=== PATIENT | female | born 1990 | race Two or more races ===

== ENCOUNTER 2024-11-09 16:51 | Emergency (ER) | payer MEDICAID ==
[~2024-11-09] VITALS: Ht 154.9 cm; Wt 83.6 kg
[2024-11-09 17:00] VITALS: BP 137/84; PULSE 87; RESP 13; TEMP 98.8; O2SAT 100
[2024-11-09] MEDS ORDERED: ACETAMINOPHEN 325 MG TAB PO ONE (17:45)
--- NOTE | 2024-11-09 17:49 | ED.PDOC ---
GI ASSESSMENT HPI Comments 34 y/o F, presents to the ED for CC of abdominal pain. Patient states, that she has been experiencing RLQ abdominal pain x hours. Patient endorses, that she is currently 7 weeks . Patient complains of current 8/10 pain. Patient denies hematuria, vaginal bleeding, fever, back pain, or dysuria. No others symptoms or modifying factors at this time. Chief Complaint: Abdominal Pain Time Seen by MD: 17:40 Reviewed Notes: Nurses Notes, Medications, Allergies Allergies: Coded Allergies: NO KNOWN ALLERGIES (Unverified , 11/09/24) Home Meds Active Scripts Nitrofurantoin Monohydrate Mac (Macrobid) 100 Mg Cap, 100 MG PO BID for 5 Days, #10 CAP Prov:SELMA RAPP MD 11/09/24 Information Source: Patient Mode of Arrival: EMS Timing: Hours Duration: Since onset Prehospital treatment: None Quality: None Vomitus: None Stool: Normal Severity: Moderate Recent: None Recent Hx of: None Pain Location: RLQ Modifying Factors: Nothing Associated sign and symptoms: None Past Medical History PAST MEDICAL HISTORY: Denies Surgical History: Denies all surgeries 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 Family History Family History: Unknown Social History Smoker: Non-Smoker Alcohol: Denies ETOH Use Drugs: Denies Drug Use Lives In: Home Constitutional: denies: chills, diaphoresis, fatigue, fever, malaise, sweats, weakness, others EENTM: denies: blurred vision, double vision, ear bleeding, ear discharge, ear drainage, ear pain, ear ringing, eye pain, eye redness, hearing loss, mouth pain, mouth swelling, nasal discharge, nose bleeding, nose congestion, nose pain, photophobia, tearing, throat pain, throat swelling, voice changes, others Respiratory: denies: cough, hemoptysis, orthopnea, SOB at rest, shortness of breath, SOB with excertion, stridor, wheezing, others Cardiovascular: denies: chest pain, dizzy spells, diaphoresis, Dyspnea on exertion, edema, irregular heart beat, left arm pain, lightheadedness, palpitations, PND, syncope, others Gastrointestinal: reports: abdominal pain; denies: abdomen distended, blood streaked bowels, constipated, diarrhea, dysphagia, difficulty swallowing, hematemesis, melena, nausea, poor appetite, poor fluid intake, rectal bleeding, rectal pain, vomiting, others Genitourinary: denies: abnormal vagina bleeding, burning, dyspareunia, dysuria, flank pain, frequency, hematuria, incontinence, pain, , vagina discharge, urgency, others Neurological: denies: dizziness, fainting, headache, left sided numbness, left sided weakness, numbness, paresthesia, pre-existing deficit, right sided numbness, right sided weakness, seizure, speech problems, tingling, tremors, weakness, others Musculoskeletal: denies: back pain, gout, joint pain, joint swelling, muscle pain, muscle stiffness, neck pain, others Integumetry: denies: bruises, change in color, change in hair/nails, dryness, laceration, lesions, lumps, rash, wounds, others Allergic/Immunocompromised: denies: Difficulty Healing, Frequent Infections, Hives, Itching, others Hematologic/Lymphatic: denies: anemia, blood clots, easy bleeding, easy bruising, swollen glands, others Endocrine: denies: excessive hunger, excessive sweating, excessive thirst, excessive urination, flushing, intolerance to cold, intolerance to heat, unexplained weight gain, unexplained weight loss, others Psychiatric: denies: anxiety, bipolar disorder, depression, hopeless, panic disorder, schizophrenia, sleepless, suicidal, others All Other Systems: Reviewed and Negative Physical Exam General Appearance: No Apparent Distress, Obese HEENT: Normal ENT Inspection, Pharynx Normal, TMs Normal Neck: Full Range of Motion, Non-Tender, Normal, Normal Inspection Respiratory: Chest Non-Tender, Lungs Clear, No Accessory Muscle Use, No Respiratory Distress, Normal Breath Sounds Cardiovascular: No Edema, No JVD, No Murmur, No Gallop, Normal Peripheral Pulses, Regular Rate/Rhythm Breast Exam: Deferred Gastrointestinal: No Organomegaly, Non Tender, No Pulsatile Mass, Normal Bowel Sounds, Soft Genitalia: Deferred Pelvic: Deferred Rectal: Deferred Extremities: No calf tenderness, Normal capillary refill, Normal inspection, Normal range of motion, Non-tender, No pedal edema Musculoskeletal : Apperance: Normal Neurologic: Alert, 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 Was a procedure done?: No GI differential Dx Differential Diagnosis: Gastritis/PUD, Gastroenteritis, Electrolyte Imbalance, Food Poisoning, , Bacterial, Viral X-Ray, Labs, Meds, VS Vital Signs Date Time Temp Pulse Resp B/P (MAP) Pulse Ox O2 Delivery O2 Flow Rate FiO2 11/09/24 17:00 98.8 87 13 137/84 (101) 100 98.8 Lab Test 11/09/24 19:56 11/09/24 18:17 Range/Units Urine Color Light-yellow Yellow Urine Clarity Clear Clear Urine pH 6.0 5.0-9.0 Urine Specific [place] 1.013 1.001-1.035 Urine Protein Negative Negative Urine Ketones Trace Negative Urine Blood Negative Negative /uL Urine Nitrite Negative Negative Urine Bilirubin Negative Negative Urine Urobilinogen Normal Negative mg/dL Urine Leukocyte Esterase 1+ Negative /uL Urine RBC 3 0 - 4 /hpf Urine Microscopic WBC 7 H 0-5 /HPF Urine Squamous Epithelial Cells Few <5 /hpf Urine Amorphous Crystals Few None Seen /hpf Urine Bacteria Few H None Seen /hpf Urine Glucose Normal Normal mg/dL Beta HCG, Quantitative 288011.0 H 1.5-4.2 mIU/mL Pelvic ultrasound shows:Impression: Single live intrauterine with heart rate of 162 bpm. Estimated gestational age 8 weeks/ 2 days with estimated date of confinement 06/19/2025. The quantitative hCG is 650287 The urine test shows: UTI The patient was being discharged on Macrobid The patient will follow up with the primary care doctor The patient will return to the emergency department's condition worsens. Images Reviewed?: Images reviewed and evaluated by me Time of 1ST Reevaluation: 18:20 Reevaluation 1ST: Unchanged Time of 2ND Reevaluation: 20:36 Reevaluation 2ND: Improved Patient Education/Counseling: Diagnosis, Treatment, Prognosis, Need For Follow Up Family Education/Counseling: No Family Present Departure 1 Departure Time of Disposition: 20:35 Impression: Primary Impression: UTI in Qualified Codes: O23.40 - Unspecified infection of urinary tract in , unspecified trimester Disposition: 01 HOME / SELF CARE / HOMELESS Condition: Fair e-Prescriptions Nitrofurantoin Monohydrate Mac (Macrobid) 100 Mg Cap 100 MG PO BID for 5 Days, #10 CAP Prov: SELMA RAPP MD 11/09/24 Discharged With: Self Critical Care Note Critical Care Time?: No Stability Stability form required: No Heart Score Heart Score: Heart Score Response (Comments) Value History N/A 0 EKG N/A 0 Age N/A 0 Risk Factors N/A 0 Troponin N/A 0 Total 0 I personally scribed for SELMA RAPP MD ([email or web address]) on 11/09/24 at 17:48. Elect ronically submitted by Stefanie Ibarra ([email or web address]). SELMA RAPP MD Nov 09, 2024 17:48
--- NOTE | 2024-11-09 19:50 | DVH ---
Procedure: US OB ULTRASOUND COMP LESS 14WKS Study Date and Requested Time: 11/09/2024 07:16 PM Study Description: US OB ULTRASOUND COMP LESS 14WKS History: pain Comparison: None Technique: Multiple high resolution andrea-scale images obtained of the uterus, fetus, and other gestat ional components with M-mode scanning for evaluation of heart rate. Findings: Single live intrauterine with gestational sac, yolk sac, and fetus visualized. heart rate of 162 bpm. Estimated gestational age 8 weeks/ 2 days based on mean gestational sac diameter of 3.4 cm and crown-rump length of 1.59 cm. Uterus measures 12 x 6.5 x 5.3 cm in size. Cervical os appears closed. Right ovary measures 4.7 x 2.8 x 2.3 cm. Left ovary measures 2.7 x 2.1 x 1.6 cm. Normal ovarian color Doppler flow bilaterally. No evidence of cystic or solid ovarian lesions. No evidence of free fluid in the cul-de-sac. Impression: Single live intrauterine with heart rate of 162 bpm. Estimated gestational age 8 week s/ 2 days with estimated date of confinement 06/19/2025.
[2024-11-09 20:21] LABS: Urine Amorphous Crystal FEW /hpf (None Seen); Urine Bacteria FEW /hpf (None Seen); Urine Blood Negative /uL (Negative); Urine Clarity Clear (Clear); Urine Color Light-Yellow (Yellow); Urine Protein, UAD Negative (Negative); Urine Specific Gravity 1.013 (1.001-1.035); Urine Squamous Epithelial Cell FEW /hpf (<5); Urine Urobilinogen Normal (Negative); Urine WBC 7 /HPF (0-5)
[2024-11-09] MEDS ORDERED: NITR-87 PO (20:37)
== END 2024-11-09 23:50 | disposition home or self-care (01) ==
LOC: ER 16:51
DX: O23.41 Unspecified infection of urinary tract in pregnancy, first trimester (principal); O00.90 Unspecified ectopic pregnancy without intrauterine pregnancy; N39.0 Urinary tract infection, site not specified; Z3A.08 8 weeks gestation of pregnancy
CPT/HCPCS: 36415; 76801; 81001; 84702

== ENCOUNTER 2025-02-06 23:31 | Emergency (ER) | payer MEDICAID ==
[~2025-02-06] VITALS: Ht 154.9 cm; Wt 81.9 kg
[~2025-02-06 23:31] MED LIST: NITR-87 PO
--- NOTE | 2025-02-07 00:42 | ED.PDOC ---
History of Present Illness HPI Comments 34 y/o F presents for c/o abnormal vaginal bleeding. Patient endorses on being 20x weeks , currently. She states on noticing blood when wiping, last night. Blood is described as light pink in appearance. Patient admits to being stressed, lately, but last ultrasound showing advancing without complications 2x weeks ago. No nausea, vomiting, urinary symptoms, fever, chills, abdominal pain, or further associated symptoms reported. 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 Family History Family History: Unknown Social History Smoker: Non-Smoker Alcohol: Denies ETOH Use Drugs: Denies Drug Use Lives In: Home All Other Systems: Reviewed and Negative (see HPI) Physical Exam General Appearance: No Apparent Distress, Normal HEENT: Normal ENT Inspection, Pharynx Normal, TMs Normal Neck: Full Range of Motion, Non-Tender, Normal, Normal Inspection Respiratory: Chest Non-Tender, Lungs Clear, No Accessory Muscle Use, No Respiratory Distress, Normal Breath Sounds Cardiovascular: No Edema, No JVD, No Murmur, No Gallop, Normal Peripheral Pulses, Regular Rate/Rhythm Breast Exam: Deferred Gastrointestinal: No Organomegaly, Non Tender, No Pulsatile Mass, Normal Bowel Sounds, Soft, Other (uterus just below the umbilical area) Genitalia: Deferred Pelvic: Deferred Rectal: Deferred Extremities: No calf tenderness, Normal capillary refill, Normal inspection, Normal range of motion, Non-tender, No pedal edema Musculoskeletal : Apperance: Normal Neurologic: Alert, 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 Was a procedure done?: No Differential Dx Considerations may include: at-risk , threatened , vaginitis, cystitis, menorrhea, among others X-Ray, Labs, Meds, VS Vital Signs Date Time Temp Pulse Resp B/P (MAP) Pulse Ox O2 Delivery O2 Flow Rate FiO2 02/07/25 03:00 98.3 89 16 119/74 (89) 100 98.3 02/07/25 02:53 18 98 Room Air* 0 21 02/06/25 23:31 98.0 86 16 115/71 (86) 100 98.0 Lab Test 02/07/25 00:40 02/07/25 00:18 Range/Units White Blood Count 7.5 4.4-10.8 10^3/uL Red Blood Count 4.25 4.0-5.20 10^6/uL Hemoglobin 11.8 L 12.2-16.2 g/dL Hematocrit 35.5 L 36.0-46.0 % Mean Corpuscular Volume 83.6 80.0-100.0 fL Mean Corpuscular Hemoglobin 27.8 L 28.0-32.0 pg Mean Corpuscular Hemoglobin Concent 33.3 32.0-36.0 g/dL Red Cell Distribution Width 13.5 11.8-14.3 % Platelet Count 318 140-450 10^3/uL Mean Platelet Volume 7.7 6.9-10.8 fL Neutrophils (%) (Auto) 64.9 37.0-80.0 % Lymphocytes (%) (Auto) 24.5 10.0-50.0 % Monocytes (%) (Auto) 9.3 0.0-12.0 % Eosinophils (%) (Auto) 0.8 0.0-7.0 % Basophils (%) (Auto) 0.5 0.0-2.0 % Neutrophils # (Auto) 4.9 1.6-8.6 10 ^3/uL Lymphocytes # (Auto) 1.8 0.4-5.4 10 ^3/uL Monocytes # (Auto) 0.7 0-1.3 10 ^3/uL Eosinophils # (Auto) 0.1 0-0.8 10 ^3/uL Basophils # (Auto) 0 0-0.2 10 ^3/uL Nucleated Red Blood Cells 0.0 % Sodium Level 139 136-145 mmol/L Potassium Level 3.7 3.5-5.1 mmol/L Chloride Level 105 98-107 mmol/L Carbon Dioxide Level 23 20-31 mmol/L Anion Gap 11 5-15 Blood Urea Nitrogen 7 L 9-23 mg/dL Creatinine 0.55 0.550-1.02 mg/dL Glomerular Filtration Rate Calc 125 >90 mL/min BUN/Creatinine Ratio 12.7 10.0-20.0 Serum Glucose 136 H 74-106 mg/dL Calcium Level 9.4 8.7-10.4 mg/dL Total Bilirubin 0.2 0.2-1.0 mg/dL Aspartate Amino Transferase (AST) 13 <34 U/L Alanine Aminotransferase (ALT) 13 7-40 U/L Alkaline Phosphatase 64 46-116 U/L Total Protein 6.6 5.7-8.2 g/dL Albumin 4.2 3.2-4.8 g/dL Beta HCG, Quantitative 57177.6 H 1.5-4.2 mIU/mL Urine Color Light-yellow Yellow Urine Clarity Clear Clear Urine pH 6.0 5.0-9.0 Urine Specific [place] 1.021 1.001-1.035 Urine Protein Negative Negative Urine Ketones 1+ H Negative Urine Blood Negative Negative /uL Urine Nitrite Negative Negative Urine Bilirubin Negative Negative Urine Urobilinogen Normal Negative mg/dL Urine Leukocyte Esterase Negative Negative /uL Urine RBC 3 0 - 4 /hpf Urine Microscopic WBC 2 0-5 /HPF Urine Squamous Epithelial Cells Few <5 /hpf Urine Bacteria Few H None Seen /hpf Urine Mucus Few None Seen Urine Glucose 2+ H Normal mg/dL [place] [id number] Ph: [phone] DIAGNOSTIC IMAGING Diagnostic Imaging Report : [id number] Signed PATIENT: CORETTA VASQUEZ ACCT: [id number] UNIT: [id number] : 1990 LOC: ER ROOM / BED: / AGE / SEX: 34 / F ADM STATUS: REG ER SERVICE [id number] ORDERING PHYSICIAN: ROSALINA GOZNALES MD PROCEDURE(s): OBUS - OB ULTRASOUND COMP GTR 14 WKS REASON: vag bleed, 20 wks ORDER NUMBER(s): [id number], ACCESSION NUMBER(s): [id number] EXAM: US OB ULTRASOUND COMP GTR 14 WKS HISTORY: vag bleed, 20 wks TECHNIQUE: Multiple real-time grayscale images of the gravid uterus with duplex Doppler color flow and M-mode spectral analysis. COMPARISON: None FINDINGS: IUP single live fetus at 20 weeks 2 days average ultrasound age (AUA) based on composite averages of the BPD, head circumference, abdominal circumference and f emur length Age based on (early ultrasound) : 20 weeks 2 days MEASUREMENTS: BPD: 4.6 cm GA: 20 w 0 d HC: 17.6 cm GA: 20 w 1 d AC: 15.2 cm GA: 20 w 3 d FL: 3.3 cm GA: 20 w 2 d Estimated weight 346 grams; 12 oz. heart rate 143 beats per minute MVP 4.2 cm ANATOMIC SURVEY: Complete anatomic survey was not performed at this time. Cephalic Presentation Anterior placenta without previa or abruption Cervix closed measuring 3.3 cm IMPRESSION: 1. IUP single live fetus at 20 weeks 2 days AUA corresponding to an MEME of 06/25/2025. 2. No abnormality detected. ATED BY: RENE LUJAN MD DICTATED DATE/TIME: 02/07/25130 SIGNED BY: RENE LUJAN MD SIGNED DATE/TIME: 02/07/25130 CC: Time of 1ST Reevaluation: 00:50 Reevaluation 1ST: Unchanged Patient Education/Counseling: Diagnosis, Treatment, Need For Follow Up Family Education/Counseling: No Family Present Departure 1 Departure Time of Disposition: 03:00 Impression: Primary Impression: 20 weeks gestation of Additional Impressions: UTI in Vaginal spotting Disposition: 01 HOME / SELF CARE / HOMELESS Condition: Stable Discharged With: Self Critical Care Note Critical Care Time?: No Stability Stability form required: No Heart Score Heart Score: Heart Score Response (Comments) Value History N/A 0 EKG N/A 0 Age N/A 0 Risk Factors N/A 0 Troponin N/A 0 Total 0 I personally scribed for ROSALINA GONZALES MD ([email or web address]) on 02/07/25 at 00:42. Electronically submitted by Brian Spencer ([email or web address]). I personally scribed for ROSALINA GONZALES MD ([email or web address]) on 02/07/25 at 02:01. Electronically submitted by Brian Spencer ([email or web address]). ROSALINA GONZALES MD Feb 07, 2025 00:42
[2025-02-07 00:52] LABS: Basophils # (auto) 0 10 ^3/uL (0-0.2); Basophils % (auto) 0.5 % (0.0-2.0); Eosinophils # (auto) 0.1 10 ^3/uL (0-0.8); Eosinophils % (auto) 0.8 % (0.0-7.0); Hematocrit 35.5 % (36.0-46.0); Hemoglobin 11.8 g/dL (12.2-16.2); Lymphocytes # (auto) 1.8 10 ^3/uL (0.4-5.4); Lymphocytes % (auto) 24.5 % (10.0-50.0); Mean Corpuscular Hemoglobin 27.8 pg (28.0-32.0); Mean Corpuscular Hgb Conc. 33.3 g/dL (32.0-36.0); Mean Corpuscular Volume 83.6 fL (80.0-100.0); Monocytes # (auto) 0.7 10 ^3/uL (0-1.3); Monocytes % (auto) 9.3 % (0.0-12.0); Neutrophils # (auto) 4.9 10 ^3/uL (1.6-8.6); Neutrophils % (auto) 64.9 % (37.0-80.0); Platelet Count (auto) 318 10^3/uL (140-450); Red Blood Cells 4.25 10^6/uL (4.0-5.20); Red Cell Distribution Width 13.5 % (11.8-14.3); White Blood Cell 7.5 10^3/uL (4.4-10.8)
[2025-02-07 01:09] LABS: Alanine Aminotransferase 13 U/L (7-40); Albumin 4.2 g/dL (3.2-4.8); Alkaline Phosphatase 64 U/L (46-116); Anion Gap 11 (5-15); Aspartate Aminotransferase 13 U/L (<34); BUN/Creatinine Ratio 12.7 (10.0-20.0); Calcium 9.4 mg/dL (8.7-10.4); Carbon Dioxide 23 mmol/L (20-31); Chloride 105 mmol/L (98-107); Potassium 3.7 mmol/L (3.5-5.1); Sodium 139 mmol/L (136-145); Total Protein 6.6 g/dL (5.7-8.2)
[2025-02-07 01:10] LABS: Bilirubin, Total 0.2 mg/dL (0.2-1.0); Blood Urea Nitrogen 7 mg/dL (9-23); Glucose 136 mg/dL (74-106)
--- NOTE | 2025-02-07 01:34 | DVH ---
EXAM: US OB ULTRASOUND COMP GTR 14 WKS HISTORY: vag bleed, 20 wks TECHNIQUE: Multiple real-time grayscale images of the gravid uterus with duplex Doppler color flow an d M-mode spectral analysis. COMPARISON: None FINDINGS: IUP single live fetus at 20 weeks 2 days average ultrasound age (AUA) based on composite averages of the BPD, head circumference, abdominal circumference and femur length Age based on (early ultrasound) : 20 weeks 2 days MEASUREMENTS: BPD: 4.6 cm GA: 20 w 0 d HC: 17.6 cm GA: 20 w 1 d AC: 15.2 cm GA: 20 w 3 d FL: 3.3 cm GA: 20 w 2 d Estimated weight 346 grams; 12 oz. heart rate 143 beats per minute MVP 4.2 cm ANATOMIC SURVEY: Complete anatomic survey was not performed at this time. Cephalic Presentation Anterior placenta without previa or abruption Cervix closed measuring 3.3 cm IMPRESSION: 1. IUP single live fetus at 20 weeks 2 days AUA corresponding to an MEME of 06/25/2025. 2. No abnormality detected.
[2025-02-07 01:43] LABS: Urine Bacteria FEW /hpf (None Seen); Urine Blood Negative /uL (Negative); Urine Clarity Clear (Clear); Urine Color Light-Yellow (Yellow); Urine Mucus FEW (None Seen); Urine Protein, UAD Negative (Negative); Urine Specific Gravity 1.021 (1.001-1.035); Urine Squamous Epithelial Cell FEW /hpf (<5); Urine Urobilinogen Normal (Negative); Urine WBC 2 /HPF (0-5)
[2025-02-07 02:53] VITALS: RESP 18; O2SAT 98
[2025-02-07 03:00] VITALS: BP 119/74; PULSE 89; RESP 16; TEMP 98.3; O2SAT 100
== END 2025-02-07 03:14 | disposition home or self-care (01) ==
LOC: ER 23:31
DX: O23.42 Unspecified infection of urinary tract in pregnancy, second trimester (principal); O26.852 Spotting complicating pregnancy, second trimester; O20.0 Threatened abortion; N39.0 Urinary tract infection, site not specified; Z3A.20 20 weeks gestation of pregnancy; Z79.899 Other long term (current) drug therapy
CPT/HCPCS: 36415; 76805; 80053; 81001; 84702; 85025; 86901